=== PATIENT | female | born 1935 | race Caucasian/White ===

== ENCOUNTER 2021-03-21 14:17 | Inpatient (IN) | payer MEDICARE, OTHER ==
[~2021-03-21] VITALS: Ht 167.6 cm; Wt 63.6 kg
[~2021-03-21 14:17] MED LIST: ALB0.5UD IH; ALBU18HF2 IH; CLOP75TA34 PO; DILT30TA2 PO; FAMO-1 PO; FURO40TA4 PO; POTA-207 PO; PRED20TA PO; ROSU20TA2 PO
[2021-03-21 15:25] LABS: ABG BASE EXCESS 16.2 mmol/L (-2.0-2.0); ABG HCO3 41.8 mmol/L (22.0-26.0); ABG OXYGEN SATURATION 98.3 % (94-97); ABG PCO2 (T) 55.1 mmHg (32.0-45.0); ABG PO2 (T) 128.6 mmHg (75.0-100.0); ALLEN'S TEST POSITIVE; FLOW 10 L/min; FMetHb 0.2 % (0.0-1.5); FO2Hb 98.1 % (94-97)
--- NOTE | 2021-03-21 15:32 | NUR ---
RESPIRATORY AT BEDSIDE FOR ABG AND BIPAP PLACEMENT.
[2021-03-21 15:43] LABS: BASOPHILS # (AUTO) 0.1 X10'3 (0-0.2); BASOPHILS % (AUTO) 0.5 % (0-1); EOSINOPHILS % (AUTO) 0 % (0-6); HEMATOCRIT 34.3 % (35.0-45.0); HEMOGLOBIN 11.4 g/dl (12.0-16.0); LYMPHOCYTES # (AUTO) 0.2 X10'3 (1.1-4.8); LYMPHOCYTES % (AUTO) 0.8 % (21-51); MEAN CORPUSCULAR HEMOGLOBIN 30.1 PG (27.0-31.0); MEAN CORPUSCULAR HGB CONC 33.2 g/dL (33.0-36.5); MEAN CORPUSCULAR VOLUME 90.6 FL (78-98); MEAN PLATELET VOLUME 8.6 FL (7.4-10.4); MONOCYTES # (AUTO) 0.7 X10'3 (0-0.9); NEUTROPHILS # (AUTO) 21.4 X10'3 (1.8-7.7); NEUTROPHILS % (AUTO) 95.7 % (42-75); PLATELET COUNT 238 X10'3 (140-440); RED BLOOD COUNT 3.79 X10'6 (4.20-5.60); RED CELL DISTRIBUTION WIDTH 14.1 % (11.5-14.5); WHITE BLOOD COUNT 22.4 X10'3 (4.5-11.0)
[2021-03-21 15:57] LABS: APTT 22 SECONDS (22-32)
[2021-03-21 16:13] LABS: ALANINE AMINOTRANSFERASE 258 U/L (12-78); ALBUMIN 2.5 G/DL (3.4-5.0); ALBUMIN/GLOBULIN RATIO 0.7 (1.1-1.5); ALKALINE PHOSPHATASE 105 IU/L (46-116); ANION GAP 7 (8-16); ASPARTATE AMINO TRANSFERASE 89 U/L (10-37); BILIRUBIN,TOTAL 0.8 MG/DL (0.1-1.0); BLOOD UREA NITROGEN 34 MG/DL (7-18); BUN/CREATININE RATIO 37.4 (6.6-38.0); CALCIUM 7.8 MG/DL (8.5-10.1); CHLORIDE 97 MMOL/L (99-107); CREATININE 0.91 MG/DL (0.40-0.90); GLUCOSE 158 MG/DL (70-104); SODIUM 145 MMOL/L (135-145); TOTAL PROTEIN 6.3 G/DL (6.4-8.2); eGFR 59 ML/MIN
[2021-03-21 16:14] LABS: POTASSIUM 2.9 MMOL/L (3.5-5.1)
[2021-03-21 16:15] LABS: TOTAL CARBON DIOXIDE 41.1 MMOL/L (24-32)
[2021-03-21] MEDS ORDERED: potassium 10mEq/100ml NS w/LIDOcaine (10mg/bag) IV SCH (16:35)
[2021-03-21] MEDS ORDERED: potassium Cl 10 mEq/100mL bag IV SCH (16:37)
[2021-03-21] MEDS ORDERED: FURO-149 PO (16:50)
[2021-03-21] MEDS ORDERED: ROSU20TA31 PO (16:50)
[2021-03-21] MEDS ORDERED: DILT30TA3 PO (16:50)
[2021-03-21] MEDS ORDERED: POTA-207 PO (16:50)
[2021-03-21] MEDS ORDERED: PRED10TA23 PO (16:51)
[2021-03-21] MEDS ORDERED: acetaminophen 325mg tablet PO PRN (17:10)
[2021-03-21] MEDS ORDERED: potassium Cl 20 mEq SR tablet PO PRN ×2 (17:10)
[2021-03-21] MEDS ORDERED: magnesium hydroxide 30ml (MOM) UD suspension PO PRN (17:10)
[2021-03-21] MEDS ORDERED: magnesium 4gm in 100ml NS 100 ML IV PRN (17:10)
[2021-03-21] MEDS ORDERED: magnesium 2GM in 50ml NS 50 ML IV PRN (17:10)
[2021-03-21] MEDS ORDERED: morphine 2 MG/ML inj. syringe IV PRN (17:10)
[2021-03-21] MEDS ORDERED: mag hydrox/Alum hydrox/simeth 30ml oral suspension PO PRN (17:10)
[2021-03-21] MEDS ORDERED: magnesium Cl slow-release 64mg tablet PO PRN (17:10)
[2021-03-21] MEDS ORDERED: potassium CL 10mEq/100ml bag 100 ML IV PRN (17:10)
[2021-03-21] MEDS ORDERED: normal saline 1000ml 1,000 ML IV SCH (17:10)
[2021-03-21] MEDS ORDERED: ondansetron/PF 4mg/2ml inj IV PRN (17:10)
[2021-03-21] MEDS ORDERED: LORazepam 2 mg/ml vial IV ONE (17:25)
[2021-03-21] MEDS ORDERED: cefepime 1GM/NS ADD-VANTAGE 100 ML IV SCH (17:28)
[2021-03-21 18:04] LABS: MAGNESIUM 1.7 MG/DL (1.5-2.4)
[2021-03-21 18:06] LABS: POTASSIUM 2.8 MMOL/L (3.5-5.1)
--- NOTE | 2021-03-21 19:42 | NUR ---
RT AT BEDSIDE.
[2021-03-21] MEDS: K and/or MAG REPLACEMENT MC SCH (20:00)
[2021-03-21] MEDS ORDERED: albuterol 2.5 MG/3 ML nebule NEB SCH (20:00)
[2021-03-21] MEDS: docusate sod 100mg capsule PO SCH (20:00)
[2021-03-21] MEDS: LORazepam 2 mg/ml vial IV SCH (20:18)
[2021-03-21] MEDS ORDERED: diltiazem 30mg tablet PO SCH (21:00)
--- NOTE | 2021-03-21 22:51 | NUR ---
SPOKE TO DR GARRETT OVER THE PHONE CONCERNING PT'S PO MEDS AND INABILITY TO SWALLOW. HE WILL PUT IN NEW MEDICATION ORDERS. I ALSO LET HIM KNOW ABOUT PT'S SKIN TEAR WOUND ON RIGHT HAND. HE RECOMMENDED KEEPING IT BANDAGED AND USING BACITRACIN OVER WOUND.
--- NOTE | 2021-03-21 23:16 | NUR ---
RT IN ROOM
[2021-03-21] MEDS: albuterol 2.5 MG/3 ML nebule NEB SCH (23:17)
[2021-03-22 00:15] VITALS: BP 132/57
--- NOTE | 2021-03-22 00:15 | NUR ---
Patient arrived at the unit around 0015 on a gurney. This patient came in and was on a BiPAP, with a hx of COPD and according to her ABG in the afternoon she was in metabolic alkalosis. This nurse called the Dr. Amador to review the order with him and he stated to keep the BIPAP on her and I requested a STAT ABG if the bypass was going to stay to know if the BIPAP is going to solve the issue. The patient BP dropped to 75/50 around 0200 after her scheduled Ativan was given for restlessness. Dr. Amador came in and stated for the patient to get a Bolus of 1000ml LR. This patient is CHF, and the housetrailer servicer came to see the patient and advice we give an antidote to the patient of the Ativan since the patient BP dropped and was bradypnea. After 0.2mg Flumazenil was given, patient BP increased to 109/41, and her respiratory rate was 12. She started getting irritated and wanted her BIPAP off, so we removed the BIPAP and she is currently on 6L NC saturating at 92-93% which is appropriate for the patient since she has COPD. Currently monitoring the patient and will
[2021-03-22 01:11] LABS: ABG BASE EXCESS 14.2 mmol/L (-2.0-2.0); ABG HCO3 37.6 mmol/L (22.0-26.0); ABG OXYGEN SATURATION 95.6 % (94-97); ABG PCO2 (T) 41.3 mmHg (32.0-45.0); ABG PO2 (T) 75.1 mmHg (75.0-100.0); ALLEN'S TEST POSITIVE; FCOHb 0.3 % (0.0-3.9); FMetHb 0.3 % (0.0-1.5); PATIENT TEMPERATURE 36.8; RESPIRATORY RATE 20 b/min; TOTAL HEMOGLOBIN 12.2 G/dl (12.0-16.0)
[2021-03-22] MEDS ORDERED: flumazenil 0.1 mg/ml inj. IV ONE (01:59)
[2021-03-22 02:00] VITALS: BP 75/50
[2021-03-22] MEDS ORDERED: ringers solution, lacted 1,000 ML IV ONE (02:40)
[2021-03-22] MEDS ORDERED: hydrocortisone sod succ/PF 100mg/2ml inj. IV ONE (02:45)
[2021-03-22 07:41] LABS: BASOPHILS % (AUTO) 0.1 % (0-1); EOSINOPHILS % (AUTO) 0 % (0-6); HEMATOCRIT 32.7 % (35.0-45.0); HEMOGLOBIN 10.8 g/dl (12.0-16.0); LYMPHOCYTES # (AUTO) 0.1 X10'3 (1.1-4.8); LYMPHOCYTES % (AUTO) 0.4 % (21-51); MEAN CORPUSCULAR HEMOGLOBIN 29.9 PG (27.0-31.0); MEAN CORPUSCULAR HGB CONC 32.9 g/dL (33.0-36.5); MEAN CORPUSCULAR VOLUME 90.8 FL (78-98); MONOCYTES # (AUTO) 0.3 X10'3 (0-0.9); MONOCYTES % (AUTO) 1.4 % (2-12); NEUTROPHILS # (AUTO) 20.9 X10'3 (1.8-7.7); NEUTROPHILS % (AUTO) 98.1 % (42-75); PLATELET COUNT 191 X10'3 (140-440); RED CELL DISTRIBUTION WIDTH 14.2 % (11.5-14.5); WHITE BLOOD COUNT 21.3 X10'3 (4.5-11.0)
[2021-03-22] MEDS: methylPREDNISolone sod succ 125mg/2ml vial IV SCH ×2 (07:43)
[2021-03-22] MEDS: albuterol 2.5 MG/3 ML nebule NEB SCH (07:52)
[2021-03-22] MEDS: docusate sod 100mg capsule PO SCH (07:57)
[2021-03-22] MEDS: K and/or MAG REPLACEMENT MC SCH (07:58)
[2021-03-22] MEDS ORDERED: ROSUVASTATIN CALCIUM 5 MG TABLET PO SCH (08:00)
[2021-03-22] MEDS ORDERED: enoxaparin 40mg/0.4ml syringe SUBCUT SCH (08:00)
[2021-03-22] MEDS: LORazepam 2 mg/ml vial IV SCH ×6 (08:00→20:00)
[2021-03-22] MEDS ORDERED: furosemide 40mg tablet PO SCH (08:00)
[2021-03-22] MEDS ORDERED: prednisone 10mg tablet PO SCH (08:00)
[2021-03-22] MEDS ORDERED: cefepime 1GM in D5W 50mL 50 ML IV SCH (08:00)
[2021-03-22] MEDS ORDERED: clopidogrel 75mg tablet PO SCH (08:00)
[2021-03-22] MEDS ORDERED: famotidine 20mg tablet PO SCH (08:00)
[2021-03-22] MEDS ORDERED: potassium Cl 20 mEq SR tablet PO SCH (08:00)
[2021-03-22 08:04] LABS: ANION GAP 9 (8-16); BLOOD UREA NITROGEN 41 MG/DL (7-18); BUN/CREATININE RATIO 52.6 (6.6-38.0); CALCIUM 7.9 MG/DL (8.5-10.1); CHLORIDE 102 MMOL/L (99-107); CREATININE 0.78 MG/DL (0.40-0.90); GLUCOSE 103 MG/DL (70-104); MAGNESIUM 1.9 MG/DL (1.5-2.4); POTASSIUM 3.2 MMOL/L (3.5-5.1); SODIUM 148 MMOL/L (135-145); eGFR 70 ML/MIN
--- NOTE | 2021-03-22 08:53 | NUR ---
promotional table spacer PAGER ID: [phone] MESSAGE: [id number] [facility] LEVEL 162. FROILAN PCAllyssa
[2021-03-22] MEDS ORDERED: diltiazem-NS 100mg/100ml 100 ML IV SCH (09:25)
[2021-03-22] MEDS ORDERED: morphine 2 MG/ML inj. syringe IV PRN (09:40)
--- NOTE | 2021-03-22 13:15 | NUR ---
Patient in room [facility] 351. I have received report from CANDACE CHATMAN FROM PCU and had the opportunity to ask questions and assume patient care.
[2021-03-22 13:28] VITALS: BP 120/56
--- NOTE | 2021-03-22 13:39 | NUR ---
called and updated Rangel devine son let him know patient will be moving to a different room surgical 351
[2021-03-22] MEDS: morphine 10mg/0.5ml (conc. morphine) oral syringe PO PRN ×2 (14:46→19:26)
--- NOTE | 2021-03-22 17:30 | NUR ---
PER PATIENT'S SON PATIENT WAS MISSING A PHONE AND SOME BOOKS, CALLED PCU AND ER AND THE ITEMS WERE NOT THERE, CALLED [facility], ITEMS ARE THERE LOCKED IN A MED ROOM SON LILA NOTIFIED
--- NOTE | 2021-03-22 19:39 | NUR ---
DID NOT REALIZE ATIVAN WAS A SCHEDULED MED, ON COMING NURSE GAVE DOSE FOR 1600, ENCOURAGED TO NONADMIN 2000 DOSE
--- NOTE | 2021-03-22 19:39 | NUR ---
Problems reprioritized. Patient report given, questions answered & plan of care reviewed with CANDACE BROWNE.
[2021-03-22 20:00] VITALS: BP 128/79
[2021-03-23] MEDS: LORazepam 2 mg/ml vial IV SCH ×4 (04:00→09:30)
--- NOTE | 2021-03-23 07:13 | NUR ---
PAGER ID: [phone] MESSAGE: Rere [facility] 351 Need nurse to pronounce order- will pass soon. Happy happy New year! Evelyn [id number]
--- NOTE | 2021-03-23 09:53 | NUR ---
Noted pt with a low Herve of 11, per digital product specialist pt with skin tear to right hand and open sores to toes. Pt NPO with code status of DNR with comfort care. Will continue to follow per LOS. Recommendations: 1) Bowel care per comfort care measures Addendum: 03/23/21 at [address] Amended: Links added.
--- NOTE | 2021-03-23 10:23 | NUR ---
Pt. found by staff not breathing with no pulse. heart monitor placed on pt. and strip printed and placed in chart. Asytole. RN pronounced at 1025. F/C and IV DC'd. Called organ donor company. Pt. not a candidate but referral number provided. Called Rangel (son) on his cell to notify at [phone]. Rangel aware pt. belongings are here - family metal and stone ring. He states he will p/u ring at later time. home called and states they will p/u pt. in one hour. Post mortem care provided.
--- NOTE | 2021-03-23 11:30 | NUR ---
home came to p/u pt.
--- NOTE | 2021-03-23 12:00 | NUR ---
Pt's son p/u family ring and belongings.
== END 2021-03-23 11:49 | DRG 871 ==
LOC: ER 14:18 → ED HOLD 17:14 → PCU 3S 03-22 00:15 → SUR 3N 03-22 14:20
PROVIDERS: ADMIT Family Medicine; ATTEND Family Medicine
PROC: 5A09357 Assistance with Respiratory Ventilation, Less than 24 Consecutive Hours, Continuous Positive Airway Pressure (ICD-10-PCS; principal; 2021-03-21)
DX: A41.9 Sepsis, unspecified organism (principal); J18.9 Pneumonia, unspecified organism; J96.20 Acute and chronic respiratory failure, unspecified whether with hypoxia or hypercapnia; J44.1 Chronic obstructive pulmonary disease with (acute) exacerbation; E87.2 Acidosis; J44.0 Chronic obstructive pulmonary disease with (acute) lower respiratory infection; Z66 Do not resuscitate; Z51.5 Encounter for palliative care; I48.91 Unspecified atrial fibrillation; E87.6 Hypokalemia; F41.9 Anxiety disorder, unspecified; I10 Essential (primary) hypertension; I25.10 Atherosclerotic heart disease of native coronary artery without angina pectoris; Z90.710 Acquired absence of both cervix and uterus; Z88.8 Allergy status to other drugs, medicaments and biological substances
CPT/HCPCS: 36415; 36600; 71045; 80048; 80053; 82803; 83605; 83735; 83880; 84132; 84484; 85018; 85025; 85610; 85730; 87040; 87077; 87186; 93005; 94640; 94660; 94760; 99285; G0378; J0692; J1650; J2060; J2270; J2930; J3480; J3490; J7030